=== PATIENT | female | born 1935 ===

== ENCOUNTER → 2018-09-11 23:03 | Outpatient (REF) | payer MEDICARE, SELFPAY ==
[2018-09-11 23:05] LABS: RBC Urine None Seen (0-5/HPF)
[2018-09-11 23:35] LABS: Appearance Urine UA CLEAR; Bilirubin Urine UA NEGATIVE (NEGATIVE); Color Urine UA YELLOW; Glucose Urine UA NEGATIVE (Normal); Ketones Urine UA NEGATIVE (NEGATIVE); Leukocyte Esterase Urine UA 1+ (NEGATIVE); Nitrite Urine UA POSITIVE (Negative); Occult Blood Urine UA NEGATIVE (Negative); Protein Urine UA NEGATIVE (Negative); Specific Gravity Urine UA <=1.005 (1.000-1.035); Urobilinogen Urine UA 0.2 E.U./dL (0.2)
[2018-09-11 23:47] LABS: Bacteria Urine Many (>30); Squamous Epithelial Cell Urine 0-1 /HPF; WBC Urine 1-5/HPF (0-5/HPF)
[2018-09-11 23:48] LABS: Culture Indicated Urine Specimen Cultured
[2018-09-12 00:31] LABS: Hematocrit 42.2 % (36-46); Hemoglobin 13.9 g/dL (12.0-16.0); Mean Corpuscular HGB Conc 33.1 % (30-36); Mean Corpuscular Hemoglobin 30.3 PG (26-34); Mean Corpuscular Volume 91.6 fL (80-100); Platelet Count 237 X10^3/uL (150-400); Red Cell Distribution Width 15.2 % (11.6-14.8); White Blood Cell Count 7.3 X10^3/uL (4.5-11.0)
[2018-09-12 00:43] LABS: Alanine Aminotransferase 25 IU/L (9-52); Albumin 4.8 g/dL (3.5-5.0); Albumin Globulin Ratio 1.5 (1.0-2.8); Alkaline Phosphatase 47 U/L (38-126); Aspartate Aminotransferase 50 IU/L (14-36); BUN Creatinine Ratio 22.2 (6-22); Bilirubin Total 0.9 mg/dL (0.2-1.3); Blood Urea Nitrogen 20 mg/dL (7-17); Carbon Dioxide 28 mmol/L (22-32); Chloride 105 mmol/L (98-107); Cholesterol 169 mg/dL (140-199); Estimated Glomerular Filt Rate 59.9 mL/min (>60); Globulin 3.2 g/dL (1.7-4.1); Glucose 88 mg/dL (80-110); HDL Cholesterol 71 mg/dL (40-60); LDL Cholesterol Calculated 57 mg/dL (<100); Sodium 144 mmol/L (137-145); Triglycerides 203 mg/dL (35-150)
[2018-09-12 01:04] LABS: HEMOLYSIS 134 (0-50)
[2018-09-12 01:05] LABS: Potassium 4.4 mmol/L (3.4-5.1)
[2018-09-12 01:11] LABS: Ferritin 52.1 ng/mL (11.1-264)
[2018-09-12 01:24] LABS: Add Manual Diff / Slide Review YES
[2018-09-12 01:30] LABS: Anisocytosis 1+; Neutrophils Absolute Manual 3942 /uL (3000-5900); Total Cells Counted 100
[2018-09-12 02:17] LABS: TSH w/ Reflex to FT4 2.95 uIU/mL (0.47-4.68)
== END ==
LOC: LAB 23:03
PROVIDERS: Visit Provider Family Medicine
DX: E78.5 Hyperlipidemia, unspecified (principal); Z13.89 Encounter for screening for other disorder; I10 Essential (primary) hypertension; K21.9 Gastro-esophageal reflux disease without esophagitis
CPT/HCPCS: 36415; 80053; 80061; 81001; 82728; 84443; 85025; 87077; 87086; 87186